=== PATIENT | female | born 1960 | race Caucasian/White ===

== ENCOUNTER 2016-11-10 10:30 | Outpatient (RCR) | payer MEDICAID ==
[~2016-11-10] VITALS: Ht 157.5 cm; Wt 113.6 kg
[~2016-11-10 10:30] MED LIST: AMBIEN10 MG PO; ATORVASTATIN CA40 MG PO; BACTRIM DS 8001 TAB PO; BENTYL20 MG PO; CARAFATE1 G1 PO; CIPRO250 M1 PO; CLARITIN 1010 MG/TAB PO; COLESTID 1GM1 G PO; DIOVAN 160MG160 MG PO; ESTRACE PO; FIORICET WITH C PO; FLAGYL500 M1 PO; FLONASE ALLERG9.9 ML NAS; GLUCOTROL5 M2 PO; GUAIFEN/CODEIN120 ML PO; LEVEMIR FLEXPEN SC; LOMOTIL1 TAB PO; METFORMIN HYDR500 MG PO; MIRALAX17 GM PO; NOVOLOG FLEX100 U/ML SQ; PHENERGAN 25 TA25 MG PO; PRILOSEC 20MG20 MG PO; PROAIR RESPICL90 MCG IH; REXULTI0.5 MG PO; SINGULAIR 110 MG/TAB PO; SULFAMETH/TRIME1 TA1 PO; TESSALON PERLE100 M1 PO; TOVIAZ8 MG PO; TRILEPTAL600 M1 PO; TYLENOL WITH CO1 TA1 PO; ZOLOFT 50MG50 MG PO; progesterone PO
[2016-11-10 10:43] VITALS: BP 142/72
[2016-11-11 12:16] VITALS: BP 168/83
[2016-11-12 16:00] VITALS: BP 128/73
[2016-11-13 14:08] VITALS: BP 136/78
== END 2017-02-08 | disposition home or self-care (01) ==
LOC: AMSURD
DX: Z48.00 Encounter for change or removal of nonsurgical wound dressing (principal); N76.4 Abscess of vulva
CPT/HCPCS: A6402

== ENCOUNTER 2020-02-08 12:23 | Emergency (ER) | payer MEDICAID ==
[~2020-02-08] VITALS: Ht 157.5 cm; Wt 100.0 kg
[2020-02-08 13:44] LABS: EOS # 0.1 (0.04-0.40); EOS % 0.7 % (1.0-5.0); HEMATOCRIT 37.6 % (37.0-47.0); HEMOGLOBIN 12.5 g/dL (12.5-16.0); LYMPH# 1.4 (1.50-4.00); MEAN CELL VOLUME 85 fl (78-100); MEAN CORPUSCULAR HEMOGLOBIN 28 pg (27-31); MEAN CORPUSCULAR HGB CONC 33 g/dL (33-37); MEAN PLATELET VOLUME 8.7 fl (7.4-10.4); MONO # 0.6 (0.20-0.80); NEU # 4.9 (1.40-6.50); PLATELET COUNT 310 K/mm3 (130-400); RED BLOOD COUNT 4.41 M/mm3 (4.10-5.30); RED CELL DISTRIBUTION WIDTH 14.3 % (11.5-14.5)
[2020-02-08 13:51] LABS: ALBUMIN 4.2 g/dL (3.4-4.8); POTASSIUM 3.4 mmol/L (3.5-5.1)
[2020-02-08 13:51] LABS: URINE APPEARANCE CLEAR; URINE BILIRUBIN NEGATIVE (NEGATIVE); URINE BLOOD NEGATIVE (NEGATIVE); URINE COLOR YELLOW; URINE GLUCOSE NEGATIVE (NEGATIVE); URINE KETONE NEGATIVE (NEGATIVE); URINE LEUKOCYTE ESTERASE NEGATIVE (NEGATIVE); URINE NITRATE NEGATIVE (NEGATIVE); URINE PROTEIN(semi-quant) TRACE mg/dL (NEGATIVE); URINE UROBILINOGEN NORMAL (NORMAL)
[2020-02-08 13:52] LABS: URINE MUCUS PRESENT (NOT PRESENT)
[2020-02-08 13:53] LABS: CALCIUM 8.7 mg/dL (8.3-10.5)
[2020-02-08 13:54] LABS: TOTAL PROTEIN 7.3 g/dL (6.2-8.1)
[2020-02-08 13:56] LABS: TOTAL BILIRUBIN 0.5 mg/dL (0.2-1.2)
[2020-02-08] MEDS ORDERED: FUROSEMIDE40 MG PO (15:09)
[2020-02-08] MEDS ORDERED: POTASSIUM CHLO20 ME3 PO (15:09)
[2020-02-08 15:19] VITALS: BP 152/88
== END 2020-02-08 15:20 | disposition home or self-care (01) ==
LOC: ED 12:23
PROVIDERS: Family Medicine
DX: I50.9 Heart failure, unspecified (principal); E11.9 Type 2 diabetes mellitus without complications; G47.30 Sleep apnea, unspecified; J45.909 Unspecified asthma, uncomplicated; G40.909 Epilepsy, unspecified, not intractable, without status epilepticus; Z79.4 Long term (current) use of insulin; Z87.442 Personal history of urinary calculi; Z87.440 Personal history of urinary (tract) infections

== ENCOUNTER 2020-02-13 15:13 | Outpatient (RCR) | payer MEDICAID ==
[2020-02-10 10:00] VITALS: BP 158/91
[~2020-02-13] VITALS: Ht 157.5 cm; Wt 118.2 kg
[2020-02-13 15:30] VITALS: BP 178/91
== END 2020-02-13 18:00 | disposition home or self-care (01) ==
LOC: AMSURD 15:13
DX: Z48.00 Encounter for change or removal of nonsurgical wound dressing (principal)

== ENCOUNTER → 2020-02-13 | Outpatient (CLI) | payer MEDICAID ==
[2020-02-10 10:00] VITALS: BP 158/91
[~2020-02-13] MED LIST changes: +FUROSEMIDE40 MG PO; +POTASSIUM CHLO20 ME3 PO
[2020-02-13 16:45] LABS: POTASSIUM 4.3 mmol/L (3.5-5.1)
[2020-02-13 16:46] LABS: CALCIUM 8.8 mg/dL (8.3-10.5)
== END ==
LOC: LAB 15:16
PROVIDERS: Family Medicine
DX: R60.9 Edema, unspecified (principal)

== ENCOUNTER → 2020-07-26 | Outpatient (CLI) | payer MEDICAID | LOC: RAD 12:01 | DX: M19.071 Primary osteoarthritis, right ankle and foot (principal) ==

== ENCOUNTER → 2020-08-28 | Outpatient (CLI) | payer MEDICAID ==
[2020-08-28 13:16] LABS: HEMATOCRIT 34.8 % (37.0-47.0); HEMOGLOBIN 11.2 g/dL (12.5-16.0); MEAN CELL VOLUME 89 fl (78-100); MEAN CORPUSCULAR HEMOGLOBIN 29 pg (27-31); MEAN CORPUSCULAR HGB CONC 32 g/dL (33-37); MEAN PLATELET VOLUME 8.9 fl (7.4-10.4); PLATELET COUNT 264 K/mm3 (130-400); RED BLOOD COUNT 3.91 M/mm3 (4.10-5.30); RED CELL DISTRIBUTION WIDTH 14.3 % (11.5-14.5); WHITE BLOOD COUNT 4.7 K/mm3 (4.8-10.8)
[2020-08-28 13:26] LABS: ALBUMIN 3.6 g/dL (3.4-4.8)
[2020-08-28 13:27] LABS: POTASSIUM 4.3 mmol/L (3.5-5.1)
[2020-08-28 13:29] LABS: TOTAL PROTEIN 6.2 g/dL (6.2-8.1)
[2020-08-28 13:31] LABS: TOTAL BILIRUBIN 0.6 mg/dL (0.2-1.2)
[2020-08-28 13:32] LABS: LYMPHOCYTE 11 % (20-51); MONOCYTE 7 % (3-10); NEUTROPHILS 82 % (42-75)
== END ==
LOC: LAB 12:59
PROVIDERS: Nurse Practitioner
DX: R60.0 Localized edema (principal)

== ENCOUNTER 2022-02-17 08:37 | Emergency (ER) | payer MEDICAID ==
[2022-02-17] MEDS ORDERED: RT ADVAIR HFA 1112 G IH (08:42)
[2022-02-17] MEDS ORDERED: AMLODIPINE BESYL5 MG PO (08:43)
[2022-02-17] MEDS ORDERED: LISINOPRIL20 MG PO (08:44)
[2022-02-17] MEDS ORDERED: MYRBETRIQ50 MG PO (08:44)
[2022-02-17] MEDS ORDERED: PROPRANOLOL HCL20 M2 PO (08:45)
[2022-02-17 09:43] LABS: URINE APPEARANCE CLOUDY; URINE BILIRUBIN NEGATIVE (NEGATIVE); URINE BLOOD TRACE (NEGATIVE); URINE COLOR DK YELLOW; URINE GLUCOSE 50 mg/dL (NEGATIVE); URINE KETONE NEGATIVE (NEGATIVE); URINE LEUKOCYTE ESTERASE TRACE (NEGATIVE); URINE NITRATE NEGATIVE (NEGATIVE); URINE PROTEIN(semi-quant) 1+ (NEGATIVE); URINE UROBILINOGEN NORMAL (NORMAL)
[2022-02-17 10:01] LABS: HEMATOCRIT 38.5 % (37.0-47.0); HEMOGLOBIN 12.5 g/dL (12.5-16.0); MEAN CELL VOLUME 91 fl (78-100); MEAN CORPUSCULAR HEMOGLOBIN 30 pg (27-31); MEAN CORPUSCULAR HGB CONC 33 g/dL (33-37); MEAN PLATELET VOLUME 9.6 fl (7.4-10.4); PLATELET COUNT 222 K/mm3 (130-400); RED BLOOD COUNT 4.24 M/mm3 (4.10-5.30)
[2022-02-17 10:11] LABS: ALBUMIN 3.9 g/dL (3.4-4.8)
[2022-02-17 10:12] LABS: POTASSIUM 4.4 mmol/L (3.5-5.1)
[2022-02-17 10:13] LABS: CALCIUM 8.8 mg/dL (8.3-10.5)
[2022-02-17 10:14] LABS: PROTHROMBIN TIME 10.7 SECONDS (9.0-12.0)
[2022-02-17 10:16] LABS: TOTAL BILIRUBIN 0.4 mg/dL (0.2-1.2)
[2022-02-17] MEDS ORDERED: MACROBID 100 M100 MG PO (10:53)
[2022-02-17 11:30] VITALS: BP 168/88
[2022-02-17 11:39] LABS: LYMPHOCYTE 6 % (20-51); MONOCYTE 3 % (3-10); NEUTROPHILS 90 % (42-75)
== END 2022-02-17 11:22 | disposition home or self-care (01) ==
LOC: ED 08:37
PROVIDERS: Physician Assistant
DX: M25.511 Pain in right shoulder (principal); M25.572 Pain in left ankle and joints of left foot; N39.0 Urinary tract infection, site not specified; E11.65 Type 2 diabetes mellitus with hyperglycemia; Z28.310 Unvaccinated for COVID-19; Z88.1 Allergy status to other antibiotic agents; W06.XXXA Fall from bed, initial encounter

== ENCOUNTER → 2024-11-10 | Outpatient (CLI) | payer MEDICAID ==
[~2024-11-10] MED LIST changes: +AMLODIPINE BESYL5 MG PO; +Iohexol 300 - 100 ML VIAL IV ONE; +LISINOPRIL20 MG PO; +MACROBID 100 M100 MG PO; +MYRBETRIQ50 MG PO; +NS 100 ML IV ONE; +PROPRANOLOL HCL20 M2 PO; +RT ADVAIR HFA 1112 G IH
== END ==
LOC: RAD 10:02
DX: I51.7 Cardiomegaly (principal); R91.8 Other nonspecific abnormal finding of lung field
CPT/HCPCS: Q9967

== ENCOUNTER → 2024-11-11 | Outpatient (CLI) | payer MEDICAID ==
[~2024-11-11] MED LIST changes: +Gadoterate 20 ML VIAL IV ONE; -Iohexol 300 - 100 ML VIAL IV ONE; -NS 100 ML IV ONE
== END ==
LOC: RAD 10:12
DX: I63.9 Cerebral infarction, unspecified (principal)
CPT/HCPCS: A9575